=== PATIENT | male | born 1970 ===

== ENCOUNTER 2016-05-23 09:01 | Emergency (ER) | payer SELFPAY ==
[2016-05-23 09:10] VITALS: BP 139/86; PULSE 85; RESP 16; TEMP 98.5; O2SAT 98; BMI 25.8
--- NOTE | 2016-05-23 10:19 | RAD ---
PROCEDURE: Radiographs of the Lumbar Spine. HISTORY: L lower back pain COMPARISON: No prior. FINDINGS: BONES: Normal alignment. No listhesis. No fracture. DISC SPACES: Mild narrowing of disc space at L4-L5. OTHER FINDINGS: None. IMPRESSION: Mild narrowing of disc space at L4-L5. Otherwise no compressive deformity. Symptoms persist, MRI should be considered.
--- NOTE | 2016-05-23 10:22 | ED PDOC ---
HPI: Back Time Seen by Provider: 05/23/16 09:19 Chief Complaint (Nursing): Back Pain Chief Complaint (Provider): Back Pain History Per: Patient History/Exam Limitations: no limitations Onset/Duration Of Symptoms: Days (x2 days) Current Symptoms Are (Timing): Still Present Additional Complaint(s): 45 y/o male who presents to the emergency department with a complaint of a left lower back pain and a left leg pain x2days. Pain worsens with movement. Denies burning sensation while urinating. Past Medical History Reviewed: Historical Data, Nursing Documentation, Vital Signs Vital Signs: Last Vital Signs Temp 98.5 F 05/23/16 09:09 Pulse 85 05/23/16 09:09 Resp 16 05/23/16 09:09 BP 139/86 05/23/16 09:09 Pulse Ox 98 05/23/16 09:09 - Medical History PMH: No Chronic Diseases - Surgical History Surgical History: No Surg Hx - Family History Family History: States: Unknown Family Hx - Home Medications Home Medications: Ambulatory Orders Medication Instructions Recorded Cyclobenzaprine [Cyclobenzaprine 10 mg PO TID PRN #15 tab 05/23/16 HCl] Naproxen [Naprosyn] 500 mg PO BID PRN #20 tablet 05/23/16 - Allergies Allergies/Adverse Reactions: Allergies Allergy/AdvReac Type Severity Reaction Status Date / Time No Known Allergies Allergy Verified 05/23/16 09:49 Review of Systems ROS Statement: Except As Marked, All Systems Reviewed And Found Negative Genitourinary Male: Negative for: Dysuria Musculoskeletal: Positive for: Back Pain (Lower left), Leg Pain (Left) Physical Exam - Reviewed Nursing Documentation Reviewed: Yes Vital Signs Reviewed: Yes - Physical Exam Appears: Positive for: Non-toxic, In Acute Distress (Mild painful distress) Head Exam: Positive for: ATRAUMATIC, NORMOCEPHALIC Skin: Positive for: Normal Color, Warm, Dry Eye Exam: Positive for: Normal appearance. Negative for: Conjunctival injection Back: Positive for: Other (Tenderness of the left lumbar paraspinal region). Negative for: L CVA Tenderness, R CVA Tenderness Extremity: Positive for: Tenderness (To the left anterior thigh). Negative for : Deformity (No ecchymosis, induration, crepitus or edema) - ECG O2 Sat by Pulse Oximetry: 98 (RA) Pulse Ox Interpretation: Normal Medical Decision Making Medical Decision Making: Time: 9:19 Initial impression: Lower back pain Initial plan: --ED Urine Dipstick (POC) --Lumbar Spine Complete --Flexeril 10 mg PO --Toradol 30 mg IM --Revaluation Scribe Attestation: Documented by Tabatha Jackman, acting as a scribe for Lisa Norris MD. Provider Scribe Attestation: All medical record entries made by the Scribe were at my direction and personally dictated by me. I have reviewed the chart and agree that the record accurately reflects my personal performance of the history, physical exam, medical decision making, and the department course for this patient. I have also personally directed, reviewed, and agree with the discharge instructions and disposition. Disposition - Clinical Impression Clinical Impression: Low back pain - Disposition Referrals: [facility] [Outside] Disposition: Routine/Home Disposition Time: 12:18 Condition: IMPROVED Prescriptions: Cyclobenzaprine [Cyclobenzaprine HCl] 10 mg PO TID PRN #15 tab PRN Reason: Pain Naproxen [Naprosyn] 500 mg PO BID PRN #20 tablet PRN Reason: Pain, Moderate (4-7) Instructions: Acute Low Back Pain (ED) Print Language: KYRGYZ
== END 2016-05-23 12:39 | disposition home or self-care (01) ==
LOC: H.ER 09:01
DX: M54.5 Low back pain (principal)
CPT/HCPCS: 72114; 96372; 99282; J1885

== ENCOUNTER 2017-07-08 13:02 | Emergency (ER) | payer OTHER ==
[2017-07-08 13:27] VITALS: BMI 29.8
[2017-07-08 13:36] VITALS: BP 128/70; PULSE 88; RESP 20; TEMP 98.3; O2SAT 98
[2017-07-08 14:32] LABS: BASO % 0.8 % (0.0-2.0); EOS # 0.1 K/uL (0.0-0.7); EOS % 2.1 % (0.0-4.0); HEMOGLOBIN 13.3 g/dL (12.0-18.0); LYMPH # 1.9 K/uL (1.0-4.3); LYMPH % 49.2 % (20.0-40.0); MEAN CELL VOLUME 88.1 fl (80.0-94.0); MEAN CORPUSCULAR HEMOGLOBIN 30.7 pg (27.0-31.0); MEAN CORPUSCULAR HGB CONC 34.9 g/dL (33.0-37.0); MEAN PLATELET VOLUME 8.5 fl (7.2-11.7); MONO # 0.3 K/uL (0.0-0.8); MONO % 8.3 % (0.0-10.0); NEUT # 1.5 K/uL (1.8-7.0); NEUT % 39.6 % (50.0-75.0); NRBC % 0.2 % (0.0-0.0); RBC 4.31 Mil/uL (4.40-5.90); RED CELL DISTRIBUTION WIDTH 13.1 % (11.5-14.5); WHITE BLOOD COUNT 3.8 K/uL (4.8-10.8)
[2017-07-08 14:44] LABS: BLOOD UREA NITROGEN 13 mg/dl (9-20); CALCIUM 9.5 mg/dL (8.4-10.2); GFR AFRICAN-AMERICAN > 60; GFR NON-AFRICAN AMERICAN > 60
--- NOTE | 2017-07-08 15:08 | CT ---
PROCEDURE: CT HEAD WITHOUT CONTRAST. HISTORY: head injury dizziness COMPARISON: None available. TECHNIQUE: Axial computed tomography images were obtained through the head/brain without intravenous contrast. Radiation dose: Total exam DLP = 76.15 mGy-cm. This CT exam was performed using one or more of the following dose reduction techniques: Automated exposure control, adjustment of the mA and/or kV according to patient size, and/or use of iterative reconstruction technique. FINDINGS: HEMORRHAGE: No intracranial hemorrhage. BRAIN: Normal casarez-white matter differentiation and density are appreciated throughout the cerebrum and cerebellum with the brainstem appearing unremarkable as well. There is no mass effect. There is no suspicious extra-axial fluid collection and the midline brain anatomy appears diffusely unremarkable. VENTRICLES: Unremarkable. No hydrocephalus. CALVARIUM: No destructive bony lesion or displaced fracture identified including through the skullbase. PARANASAL SINUSES: Unremarkable as visualized. No significant inflammatory changes. MASTOID AIR CELLS: Unremarkable as visualized. No inflammatory changes. OTHER FINDINGS: None. IMPRESSION: Unremarkable noncontrast CT of the Head.
[2017-07-08 15:30] LABS: BARBITURATES, UR NEGATIVE (NEGATIVE); BENZODIAZEPINES, UR NEGATIVE (NEGATIVE); OPIATES, UR NEGATIVE (NEGATIVE); PHENCYCLIDINE, UR NEGATIVE (NEGATIVE)
--- NOTE | 2017-07-08 16:24 | ED PDOC ---
HPI: Headache Time Seen by Provider: 07/08/17 13:38 Chief Complaint (Nursing): Headache Chief Complaint (Provider): Headache and Dizziness History Per: Patient History/Exam Limitations: no limitations Onset/Duration Of Symptoms: Days (x2) Current Symptoms Are (Timing): Still Present Severity: None Additional Complaint(s): 46 year old male, with a past medical history of epilepsy, presents to the ED complaining of a mild headache associated with dizziness for the past 2 days. Patient reports he had a seizure yesterday when he injured his head. Patient reports he went to [facility] for evaluation for seizure. Patient states he has been compliant with medications for seizures. Denies nausea, vomiting, chest pain, weakness, numbness, and other medical issues at this time. PMD: None Provided Past Medical History Reviewed: Historical Data, Nursing Documentation, Vital Signs Vital Signs: Last Vital Signs Temp 98.3 F 07/08/17 13:34 Pulse 88 07/08/17 13:34 Resp 20 07/08/17 13:34 BP 128/70 07/08/17 13:34 Pulse Ox 98 07/08/17 13:34 - Medical History PMH: Seizures - Surgical History Surgical History: No Surg Hx - Family History Family History: States: Unknown Family Hx - Home Medications Home Medications: Ambulatory Orders Medication Instructions Recorded Cyclobenzaprine [Cyclobenzaprine 10 mg PO TID PRN #15 tab 05/23/16 HCl] Naproxen [Naprosyn] 500 mg PO BID PRN #20 tablet 05/23/16 Meclizine [Meclizine*] 25 mg PO Q6 PRN #15 tab 07/08/17 - Allergies Allergies/Adverse Reactions: Allergies Allergy/AdvReac Type Severity Reaction Status Date / Time No Known Allergies Allergy Verified 05/23/16 09:49 Review of Systems ROS Statement: Except As Marked, All Systems Reviewed And Found Negative Cardiovascular: Negative for: Chest Pain Gastrointestinal: Negative for: Nausea, Vomiting Neurological: Positive for: Headache (mild headache status post seizure), Dizziness (status post seizure). Negative for: Weakness, Numbness Physical Exam - Reviewed Nursing Documentation Reviewed: Yes Vital Signs Reviewed: Yes - Physical Exam Appears: Positive for: Non-toxic, No Acute Distress Head Exam: Positive for: ATRAUMATIC, NORMOCEPHALIC Skin: Positive for: Normal Color, Warm, Dry Eye Exam: Positive for: Normal appearance, EOMI, PERRL ENT: Positive for: Normal ENT Inspection Neck: Positive for: Normal, Painless ROM, Supple Cardiovascular/Chest: Positive for: Regular Rate, Rhythm. Negative for: Murmur Respiratory: Positive for: Normal Breath Sounds. Negative for: Respiratory Distress Gastrointestinal/Abdominal: Positive for: Normal Exam, Soft. Negative for: Tenderness Back: Positive for: Normal Inspection Extremity: Positive for: Normal ROM. Negative for: Pedal Edema, Deformity Neurologic/Psych: Positive for: Alert, Oriented. Negative for: Motor/Sensory Deficits - Laboratory Results Result Diagrams: 07/08/17 14:00 07/08/17 14:00 - ECG O2 Sat by Pulse Oximetry: 98 (RA) Pulse Ox Interpretation: Normal - Progress Re-evaluation Time: 17:07 Condition: Re-examined, Improved Medical Decision Making Medical Decision Making: Time: 1400 Plan: -- CT Head w/o contrast -- EKG -- BMP -- Urine Drug Screen -- CBC with differentials Time: [address] RESULTS FINDINGS: HEMORRHAGE: No intracranial hemorrhage. BRAIN: Normal casarez-white matter differentiation and density are appreciated throughout the cerebrum and cerebellum with the brainstem appearing unremarkable as well. There is no mass effect. There is no suspicious extra-axial fluid collection and the midline brain anatomy appears diffusely unremarkable. VENTRICLES: Unremarkable. No hydrocephalus. CALVARIUM: No destructive bony lesion or displaced fracture identified including through the skullbase. PARANASAL SINUSES: Unremarkable as visualized. No significant inflammatory changes. MASTOID AIR CELLS: Unremarkable as visualized. No inflammatory changes. OTHER FINDINGS: None. IMPRESSION: Unremarkable noncontrast CT of the Head. Scribe Attestation: Documented by Iveth Medeiros, acting as a scribe for Dr. Jeff De Paz MD. Provider Scribe Attestation: All medical record entries made by the Scribe were at my direction and personally dictated by me. I have reviewed the chart and agree that the record accurately reflects my personal performance of the history, physical exam, medical decision making, and the department course for this patient. I have also personally directed, reviewed, and agree with the discharge instructions and disposition. Disposition - Clinical Impression Clinical Impression: Head injury, Dizziness - Patient ED Disposition Is Patient to be Admitted: No Doctor Will See Patient In The: Office Counseled Patient/Family Regarding: Studies Performed, Diagnosis, Need For Followup - Disposition Referrals: [facility] [Outside] Disposition: Routine/Home Disposition Time: 17:07 Condition: GOOD Additional Instructions: Take your medications as instructed. Follow up with your PCP in 2-3 days. Prescriptions: Meclizine [Meclizine*] 25 mg PO Q6 PRN #15 tab PRN Reason: Dizziness Instructions: Concussion in Adults, Dizziness, Nonvertigo, (DC) Forms: [employer] (Mohawk)
--- NOTE | 2017-07-09 11:31 | CARD ---
APPROVED REPORT EKG Measurement Heart [id number] <Conclusion> Sinus bradycardia Otherwise normal ECG
== END 2017-07-08 17:23 | disposition home or self-care (01) ==
LOC: H.ER 13:02
DX: S09.90XA Unspecified injury of head, initial encounter (principal); W19.XXXA Unspecified fall, initial encounter; Y92.89 Other specified places as the place of occurrence of the external cause; G40.909 Epilepsy, unspecified, not intractable, without status epilepticus